=== PATIENT | female | born 1960 ===

== ENCOUNTER 2024-12-27 15:47 | Emergency (ER) | payer MEDICARE, SELFPAY ==
[2024-12-27 15:55] VITALS: BP 131/91; PULSE 93; RESP 18; TEMP 36.6; O2SAT 100
--- NOTE | 2024-12-27 16:31 | PC.NURSE ---
Pt. only requesting Invega injection early. FLACO Dewey notified. Per FLACO, staff can hold off on orders at this time until a MD signs up for her and can assess if ordered interventions are necessary.
[2024-12-27 16:40] LABS: Basophils Percent Auto 0.5 % (0.2-1.2); Eosinophils Absolute Auto 0.2 K/mm3 (0-0.3); Eosinophils Percent Auto 3.9 % (0-4.4); Hematocrit 40.5 % (37.0-47.0); Hemoglobin 13.2 g/dL (12.0-15.0); Immature Granulocyte Absolute 0.01 K/mm3 (0.00-0.031); Immature Granulocyte Percent A 0.2 % (0-0.5); Immature Platelet Fraction Pct 9.3 % (0.9-11.2); Lymphocytes Absolute Auto 1.36 K/mm3 (0.9-3.2); Lymphocytes Percent Auto 23.2 % (18.3-44.2); Mean Corpuscular HGB Conc 32.6 g/dl (32-36); Mean Corpuscular Hemoglobin 30.3 pg (26-34); Mean Corpuscular Volume 92.9 fl (80-100); Monocytes Absolute Auto 0.6 K/mm3 (0.1-0.6); Monocytes Percent Auto 9.5 % (2.6-8.5); Neutrophils Absolute Auto 3.7 K/mm3 (1.3-6.7); Neutrophils Percent Auto 62.7 % (45.5-73.1); Platelet Count Result 134 k/mm3 (150-375); Red Blood Count 4.36 M/mm3 (4.2-5.4); Red Cell Distribution Width 12.6 % (11.5-14.5); White Blood Count 5.9 K/mm3 (4.5-10.0)
[2024-12-27 16:49] LABS: Ethanol < 10 mg/dL (<10)
[2024-12-27 16:51] LABS: Alanine Aminotransferase 17 U/L (6-35); Albumin Level 4.2 g/dL (3.5-5.1); Alkaline Phosphatase 81 U/L (38-126); Anion Gap 14 mmol/L (4-12); Aspartate Amino Transferase 25 U/L (14-36); Bilirubin,Total 0.6 mg/dL (0.2-1.3); Blood Urea Nitrogen 23 mg/dL (7-17); Calcium 9.5 mg/dL (8.4-10.2); Carbon Dioxide 23 mmol/L (22-30); Chloride 104 mmol/L (98-107); Estimated CRCL calculation 70 ml/min; Estimated Glomerular Filt Rate > 60; Glucose 139 mg/dL (65-110); Potassium 3.9 mmol/L (3.4-5.0); Sodium 141 mmol/L (137-145)
[2024-12-27 17:13] LABS: Influenza A QL RT-PCR Negative (Negative); Influenza B QL RT-PCR Negative (Negative); SARS-CoV-2 RNA PCR Negative (Negative)
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
[2024-12-27 17:21] LABS: Thyroid Stimulating Hormone Reflex 0.466 uIU/mL (0.465-4.68)
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
== END 2024-12-27 19:17 | disposition left against medical advice (07) ==
PROVIDERS: Physician Assistant; Emergency Provider Physician Assistant
DX: F99 Mental disorder, not otherwise specified (principal); F33.9 Major depressive disorder, recurrent, unspecified; F25.9 Schizoaffective disorder, unspecified; Z11.59 Encounter for screening for other viral diseases
CPT/HCPCS: 36415; 80053; 82077; 84443; 85025; 85055; 87636; 99283

== ENCOUNTER 2025-01-07 19:58 | Emergency (ER) | payer MEDICARE, SELFPAY ==
[2025-01-07 20:06] VITALS: BP 138/77; PULSE 79; RESP 16; TEMP 36.6; O2SAT 100
--- NOTE | 2025-01-07 21:42 | ED.LOWEXIN ---
HPI - Extremity Injury (Lower) General Chief Complaint: Extremity Injury, Lower <Montez Tanner PA-C - Last Filed: 01/07/25 23:04> Stated Complaint: Legs hurting from walking <Montez Tanner PA-C - Last Filed: 01/07/25 23:04> Time Seen by Provider: 01/07/25 21:40 <Montez Tanner PA-C - Last Filed: 01/07/25 23:04> Source: patient <BHAKTI Singh Last Filed: 01/07/25 23:04> Mode of arrival: ambulatory <Montez Tanner PA-C - Last Filed: 01/07/25 23:04> Limitations: no limitations <Montez Tanner PA-C - Last Filed: 01/07/25 23:04> History of Present Illness HPI Narrative: This is a 64-year-old female who presents to the ED for chief complaint of bilateral leg pain. Triage note mentions that patient states that hurts her legs when she walks. History from patient is quite limited due to her pain obviously intoxicated on illicit drugs. She tells me that her legs are in pain. When I ask what we can do for, she repeated yells I do not know. She screams at the top of her lungs while the blood pressure cuff is taking a measurement and then eventually agrees to have lab work drawn and take her routine Zyprexa. <Montez Tanner PA-C - Last Filed: 01/07/25 23:04> Related Data Allergies/Adverse Reactions: Allergies Allergy/AdvReac Type Severity Reaction Status Date / Time Unable to Assess Allergy Verified 01/07/25 20:01 <Montez Tanner PA-C - Last Filed: 01/07/25 23:04> Review of Systems Review of Systems: All systems as dictated in HPI <Montez Tanner PA-C - Last Filed: 01/07/25 23:04> [facility] Social History Social History: Social History Substance use type: unknown <BHAKTI Singh Last Filed: 01/07/25 23:04> Exam Narrative: GENERAL: Appears chronically ill and appears to be intoxicated on methamphetamines HEAD: Normocephalic, atraumatic. EYES: PERRLA and EOMI. ENT: Nearly fully edentulous. Nares clear, no rhinorrhea or epistaxis. Mucous membranes moist. Oropharynx without tonsillar hypertrophy exudate or other lesions. NECK: Supple. No adenopathy or masses. CHEST: No respiratory distress. Clear to auscultation. No wheezes rales or rhonchi HEART: Regular rate and rhythm. No murmur heard. Normal peripheral pulses. ABDOMEN: Soft, nontender, nondistended, normal active bowel sounds. MSK: Normal range of motion. No edema. SKIN: Warm, dry, no rash. NEURO: Alert and oriented. No focal deficits. Ambulates without assistance. PSYCH: Anxious mood. No SI or HI. 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 Patient with reported methamphetamine use, here for bilateral leg pain, however she is well appearing, with normal vital signs, ambulating with normal steady gait. Eloped from department before getting medications. <Angela Galeana MD - Last Filed: 01/07/25 23:33> Vital Signs Vital signs: Vital Signs Temperature 97.9 F 01/07/25 20:06 Pulse Rate 79 01/07/25 20:06 Respiratory Rate 16 01/07/25 20:06 Blood Pressure 138/77 01/07/25 20:06 Pulse Oximetry 100 01/07/25 20:06 Oxygen Delivery Room Air 01/07/25 20:06 Temperature 97.9 F 01/07/25 20:06 Pulse Rate 79 01/07/25 20:06 Respiratory Rate 16 01/07/25 20:06 Blood Pressure 138/77 01/07/25 20:06 Pulse Oximetry 100 01/07/25 20:06 Oxygen Delivery Room Air 01/07/25 20:06 <Montez Tanner PA-C - Last Filed: 01/07/25 23:04> Vital Signs Temperature 97.9 F 01/07/25 20:06 Pulse Rate 79 01/07/25 20:06 Respiratory Rate 16 01/07/25 20:06 Blood Pressure 138/77 01/07/25 20:06 Pulse Oximetry 100 01/07/25 20:06 Oxygen Delivery Room Air 01/07/25 20:06 Temperature 97.9 F 01/07/25 20:06 Pulse Rate 79 01/07/25 20:06 Respiratory Rate 16 01/07/25 20:06 Blood Pressure 138/77 01/07/25 20:06 Pulse Oximetry 100 01/07/25 20:06 Oxygen Delivery Room Air 01/07/25 20:06 <Angela Galeana MD - Last Filed: 01/07/25 23:33> MDM - Extremity Injury (Lower) MDM Narrative Medical decision making narrative: Patient eloped from the ED shortly after being seen by myself. The nursing staff reportedly walked in the room to start lab work and get the patient to psychiatric medications when she was being verbally threatening to the staff and decided to elope from the department. She was escorted out by security. <Montez Tanner PA-C - Last Filed: 01/07/25 23:04> Discharge Plan Discharge Clinical Impression: Bilateral leg pain <Montez Tanner PA-C - Last Filed: 01/07/25 23:04> Patient Disposition: Elopement After Seen by Prov <Montez Tanner PA-C - Last Filed: 01/07/25 23:04> Condition: Stable <Montez Tanner PA-C - Last Filed: 01/07/25 23:04> Patient Language: Nepali <Montez Tanner PA-C - Last Filed: 01/07/25 23:04> Follow-up/Referrals: UNKNOWN,DOCTOR [Primary Care Provider] - <Montez Tanner PA-C - Last Filed: 01/07/25 23:04>
--- NOTE | 2025-01-07 22:04 | PC.NURSE ---
This RN went to assess patient and give and fill out orders placed by PA. Patient immediately starts to yell and scream at staff. Patient talking and screaming over this RN and emergency response technician who are trying to explain that staff is trying to fill out orders and give medications that patient requested. Patient continues to yell and scream over this RN and yelling I just want drugs!! I don't want help! Fuck you! Patient tightens her hands and arms in a stance to swing at staff. Patient continues to yell at this RN, another RN and emergency response technician. Patient refusing care and and treatment, continues to yell at staff. ED security called and Gina MANNING called to escort patient out of ED. [id number] Gina MANNING arrives with ED security and assisted into w/c and wheeled out of the ED and left with PD.
== END 2025-01-07 22:35 | disposition left against medical advice (07) ==
LOC: ANHED 22:23
PROVIDERS: Emergency Provider Physician Assistant
DX: M79.605 Pain in left leg (principal); M79.604 Pain in right leg
CPT/HCPCS: 99283; J2359